=== PATIENT | male | born 1955 | race Caucasian/White ===

== ENCOUNTER 2018-02-10 13:29 | Emergency (ER) | payer MEDICARE ==
[~2018-02-10] VITALS: Ht 175.3 cm; Wt 85.9 kg
[~2018-02-10 13:29] MED LIST: MAGN500T4 PO; MOBI7.5T PO; MULT-65 PO; OXYC5 PO; XANA0.5T PO; ZINC30CA PO
[2018-02-10 13:33] VITALS: BP 166/95; PULSE 110; RESP 16; TEMP 99.5; O2SAT 99
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
[2018-02-10 15:01] LABS: AUTOMATED NEUTROPHIL # 5.6 TH/MM3 (1.8-7.7); BASOPHIL # 0.1 TH/MM3 (0-0.2); BASOPHIL % 1.4 % (0.0-2.0); EOSINOPHIL # 0.1 TH/MM3 (0-0.4); EOSINOPHIL % 1.9 % (0.0-4.0); HEMATOCRIT 38.8 % (39.0-51.0); HEMOGLOBIN 12.9 GM/DL (13.0-17.0); LYMPH % 11.7 % (9.0-44.0); LYMPHOCYTE # 0.8 TH/MM3 (1.0-4.8); MEAN CELL VOLUME 81.4 FL (80.0-100.0); MEAN CORPUSCULAR HEMOGLOBIN 27.1 PG (27.0-34.0); MEAN CORPUSCULAR HGB CONC 33.3 % (32.0-36.0); MEAN PLATELET VOLUME 8.9 FL (7.0-11.0); MONOCYTE # 0.6 TH/MM3 (0-0.9); PLATELET COUNT 387 TH/MM3 (150-450); RED BLOOD COUNT 4.76 MIL/MM3 (4.50-5.90); RED CELL DISTRIBUTION WIDTH 17.5 % (11.6-17.2); WHITE BLOOD COUNT 7.2 TH/MM3 (4.0-11.0)
[2018-02-10 15:16] LABS: CALCIUM 9.5 MG/DL (8.5-10.1)
[2018-02-10 15:17] LABS: BICARBONATE 21.8 MEQ/L (21.0-32.0)
[2018-02-10 15:20] LABS: C-REACTIVE PROTEIN 0.37 MG/DL (0.00-0.30); CREATININE 1.3 MG/DL (0.60-1.30)
[2018-02-10 15:47] VITALS: BP 132/83; PULSE 72; RESP 16; O2SAT 97
[2018-02-10] MEDS ORDERED: CEPHALEXIN MONOHYDRATE 500 MG CAP PO ONE (16:00)
[2018-02-10] MEDS ORDERED: CEPH-460 PO (16:03)
== END 2018-02-10 17:17 | disposition home or self-care (01) ==
LOC: PHED 13:29
DX: S96.911A Strain of unspecified muscle and tendon at ankle and foot level, right foot, initial encounter (principal); S90.31XA Contusion of right foot, initial encounter; L03.115 Cellulitis of right lower limb; V29.9XXA Motorcycle rider (driver) (passenger) injured in unspecified traffic accident, initial encounter; Z79.899 Other long term (current) drug therapy; Z85.89 Personal history of malignant neoplasm of other organs and systems; Z92.21 Personal history of antineoplastic chemotherapy
CPT/HCPCS: 73610; 73630; 80048; 85025; 85652; 86140; 99284